=== PATIENT | female | born 1985 | race Two or more races ===

== ENCOUNTER 2016-03-24 18:59 | Emergency (ER) | payer MEDICAID, OTHER ==
[~2016-03-24] VITALS: Ht 149.9 cm; Wt 89.4 kg
[2016-03-24 19:43] LABS: Urine RBC None Seen /hpf (0 - 4)
[2016-03-24 19:51] LABS: Urine Bilirubin Negative (Negative); Urine Blood Negative /uL (Negative); Urine Color Yellow (Yellow); Urine Glucose Normal (Normal); Urine Ketone Negative (Negative); Urine Nitrite Negative (Negative); Urine Squamous Epithelial Cell FEW /hpf (<5); Urine Urobilinogen Normal (Negative); Urine pH 6.5 (5.0-8.0)
[2016-03-24 19:53] LABS: Basophils # (auto) 0.1 uL; Eosinophils # (auto) 0.1 uL; Eosinophils % (auto) 0.8 % (0.0-7.0); Hematocrit 47.1 % (36.0-46.0); Hemoglobin 15.9 g/dL (12.2-16.2); Lymphocytes # (auto) 2.4 uL; Lymphocytes % (auto) 36.5 % (10.0-50.0); Mean Corpuscular Hemoglobin 31.5 pg (28.0-32.0); Mean Corpuscular Hgb Conc. 33.6 g/dL (32.0-36.0); Mean Corpuscular Volume 93.6 fL (80.0-100.0); Mean Platelet Volume 9.5 fL (7.4-10.4); Monocytes # (auto) 0.6 uL; Monocytes % (auto) 9.2 % (0.0-12.0); Neutrophils # (auto) 3.5 uL; Neutrophils % (auto) 52.5 % (37.0-80.0); Platelet Count (auto) 280 10^3/uL (140-450); Red Cell Distribution Width 12.4 % (11.6-16.0); White Blood Cell 6.7 10^3/uL (4.4-10.8)
[2016-03-24 20:15] LABS: Albumin 3.9 g/dL (3.4-5.0); Bilirubin, Total 0.6 mg/dL (0.2-1.0); Calcium 9.2 mg/dL (8.5-10.1); Potassium 4.2 mmol/L (3.5-5.1); Total Protein 7.3 g/dL (6.4-8.2)
[2016-03-24 22:49] VITALS: BP 105/63
[2016-03-24 23:11] LABS: Amylase 55 U/L (25-115)
[2016-03-24 23:37] LABS: B-Type Natriuretic Peptide 19.58 pg/mL (0-100)
[2016-03-24 23:51] LABS: Temperature: 22.5 C (20.0-25.0)
== END 2016-03-24 23:50 | disposition left against medical advice (07) ==
LOC: ER 19:23
DX: M54.2 Cervicalgia (principal); R51 Headache; F41.9 Anxiety disorder, unspecified; R68.84 Jaw pain; R20.2 Paresthesia of skin
CPT/HCPCS: 36415; 80053; 81001; 82150; 83690; 83880; 84484; 85025; 85049; 99285; G0434; 93005